=== PATIENT | male | born 1955 | race Caucasian/White ===

== ENCOUNTER 2016-04-05 14:18 | Outpatient (CLI) | payer BC, OTHER ==
[2014-09-16 11:34] VITALS: O2SAT 95
== END 2016-04-05 14:19 | disposition home or self-care (01) | DRG 554 ==
LOC: CONVCARE 14:18
PROVIDERS: ATTEND Orthopaedic Surgery
DX: M17.11 Unilateral primary osteoarthritis, right knee (principal)
CPT/HCPCS: 73560

== ENCOUNTER 2016-05-24 13:37 | Outpatient (CLI) | payer OTHER ==
[2014-09-16 11:34] VITALS: O2SAT 95
== END 2016-05-24 13:38 | disposition home or self-care (01) | DRG 565 ==
LOC: CONVCARE 13:37
PROVIDERS: ATTEND Orthopaedic Surgery
DX: M25.462 Effusion, left knee (principal); I82.401 Acute embolism and thrombosis of unspecified deep veins of right lower extremity; Z79.01 Long term (current) use of anticoagulants
CPT/HCPCS: 36415; 85610; 87070; 87075

== ENCOUNTER 2016-10-25 09:43 | Outpatient (CLI) | payer OTHER ==
[2014-09-16 11:34] VITALS: O2SAT 95
== END 2016-10-25 09:44 | disposition home or self-care (01) | DRG 561 ==
LOC: CONVCARE 09:43
PROVIDERS: ATTEND Orthopaedic Surgery
DX: Z47.1 Aftercare following joint replacement surgery (principal); Z96.651 Presence of right artificial knee joint
CPT/HCPCS: 73560

== ENCOUNTER 2017-10-10 11:35 | Outpatient (CLI) | payer OTHER ==
[2014-09-16 11:34] VITALS: O2SAT 95
== END 2017-10-10 11:36 | disposition home or self-care (01) | DRG 566 ==
LOC: CONVCARE 11:35
PROVIDERS: ATTEND Orthopaedic Surgery
DX: M25.462 Effusion, left knee (principal); Z96.651 Presence of right artificial knee joint
CPT/HCPCS: 73560